=== PATIENT | female | born 1995 ===

== ENCOUNTER 2016-12-28 10:39 | Emergency (ER) | payer OTHER ==
[~2016-12-28] VITALS: Ht 167.6 cm; Wt 93.4 kg
[~2016-12-28 10:39] MED LIST: CIPR-255 PO; NORE5TAB5 PO
[2016-12-28 10:42] VITALS: TEMP 36.3; Ht 167.6 cm; Wt 93.4 kg
[2016-12-28] MEDS ORDERED: CIPROFLOXACIN HCL 0.3% OP SOLN 2.5 ML BTL OP STA (13:15)
--- NOTE | 2016-12-28 13:17 | EMERGENCY ROOM VISIT NOTE ---
History First contact with patient: 11:21 Chief Complaint: EYE PAIN Stated Complaint: CHEMICAL IN EYE - BURNING AND ITCHING History of Present Illness The patient is a 21 year old female who presents to the Emergency Room via private vehicle with complaints of "chemical in eye, burning and itching". The patient states that earlier today around 9:45 AM, she was at work at the [employer], and had a bag of high calcium, hydrated Lyme that she dropped into a barrel that caused some of the powder to come up and strike her in the eye, particularly the right eye. She notes that she rinsed with tap water however she notes that she has been unable to read well since then and has discomfort in the right eye. She immediately removed the contact from this eye. Her tetanus is up-to-date. She notes an itching sensation in the eye. Review of Systems A complete 6-point Review of Systems was discussed with the patient, with pertinent positives and negatives listed in the History of Present Illness. All remaining Review of Systems questions can be considered negative unless otherwise specified. Past Medical/Surgical History Medical Problems: (1) Uterine fibroid Family History No pertinent family history Cancer Social History Smoking Status: Never Smoker Alcohol Use: none Marital Status: single Housing Status: lives with roommate Occupation Status: [employer] Current/Historical Medications Scheduled Norethindrone (Aygestin), 5 MG PO DAILY Allergies Coded Allergies: No Known Allergies (Unverified , 12/28/16) Physical Exam Vital Signs Date Time Temp Pulse Resp B/P Pulse Ox O2 Delivery O2 Flow Rate FiO2 12/28/16 13:23 72 120/90 98 Room Air 12/28/16 10:42 36.3 94 18 146/79 98 Room Air Right Eye Acuity: 20/40 Left Eye Acuity: 20/25 Physical Exam VITAL SIGNS - Vital signs and nursing notes were reviewed. Patient is afebrile , slightly hypertensive at 146/79, non-tachycardic and is saturating well on room air 98%. GENERAL -21-year-old female appearing her stated age who is in no acute distress. Communicates well with provider and answers questions appropriately. SKIN - Without rashes. No evidence of cornell to the skin. HEAD - NC/AT. EYES - PERRL with EOMI bilaterally. Sclera anicteric. Palpebral conjunctiva pink and moist with no injection noted in the left eye, with bulbar conjunctival injection of the right. CARDIAC - RRR with S1/S2. No murmur, rubs, or gallops appreciated. Slit Lamp Examination was performed of the right eye(s). Alcaine drops were applied to the affected eye(s) for proper anesthetization. The affected eye(s) were stained with Fluorescein stain to precipitate adequate visualization of any conjunctival/scleral excoriations or ulcers. The patient's face was comfortably rested on the chin guard of the slit lamp apparatus. The lights were dimmed and the affected eye(s) were thoroughly examined under microscopy using the blue light. Inferior 4:00 corneal uptake was present with small punctate areas of evidence of chemical burn, the anterior chamber is intact with negative Abby sign. This was examined after 2 L of saline were utilized to copiously irrigate the right eye via the Miguel lens. Additionally, the eye( s) were examined under microscopy using the regular light. Close examination revealed no abnormalities. Patient tolerated the procedure well and no complications were met. Medical Decision & Procedures Medications Administered Medications (Trade) Dose Ordered Sig/Ton Route Start Time Stop Time Status Last Admin Dose Admin Ciprofloxacin HCl (Ciprofloxacin 0.3% Op Soln) 2 drops NOW STAT OP 12/28/16 13:15 12/28/16 13:16 DC 12/28/16 13:15 2 DROPS Medical Decision Patient was seen and evaluated as above. I was concerned due to the exposure that the patient may have a potential serious chemical burn of the eye because of the exposure. I did discuss the case with my attending, and the decision was made to utilize normal saline and a Miguel lens to rinse the eye after physically removing any remaining clumps of Lyme. I was unable to appreciate any remaining clumps, therefore the Miguel lens was attached to a 1000 cc bag of NSS was inserted into the eye without difficulty. The flow of the NSS was adjusted to the patient's comfort. The entire bag of NSS was allowed to flow through the patient's eye to ensure adequate dilution of any remaining chemicals. The patient tolerated the procedure well and no complications were met. 2000mL were used total. The case was discussed with the [facility] Control [facility], at 11:38 AM, who felt that the chemical could cause cornell to the eye therefore saline was recommended to irrigate the eye followed by EDTA if necessary. I was then recommended to dilute, and then stained the eye and examine the eye. They note that the EDTA can be used if there is opacity seen or indicated. The patient tolerated the 2 L well, with what I believe to be adequate dilution. The eye was stained with results as above. I did elect to discuss the case with the on-call inspector firearms and spoke with Dr. Hoang at 12:45 PM. He recommended that I have the patient call his office, and place the patient on antibiotic drops or ointment, and it was decided to use ciprofloxacin ointment. She is also to use artificial tears. He will see the patient on Saturday, but is to call his office if worse at a [phone]. I spoke with the area secretary, and the patient has an appointment at 2 PM. Patient was instructed upon things to take to the point at. Patient is to fill out a workman's comp form. She was given the Ciloxan drops to use 3-4 times daily. She is a follow-up with Dr. Hoang on Saturday, or call his office or return here sooner with any problems. She was educated upon management of today's findings, appeared to have acceptable acuity visually, does not appear to have any emergent eminence of the eye after thorough irrigation, and is to follow up as instructed. She was educated upon today's findings, and instructed upon worrisome symptoms which to return. In the evaluation and treatment of this patient, the following differential diagnoses were considered: Corneal Abrasion, Conjunctivitis, Eye Contusion, Globe Injury, Orbital Floor Injury (Blowout Fracture), Corneal Ulcer, Keratitis , Herpes Zoster Opthalmic, Blepharitis, Orbital Cellulitis, Iritis, Scleritis/ Episcleritis, Uveitis, Temporal Arteritis, Subconjunctival Hemorrhage. Impression Primary Impression: Chemical exposure of eye Departure Information Dispostion Home / Self-Care Condition GOOD Referrals No Doctor, Assigned (PCP) Alex Lucas M.D. Patient Instructions [facility] Additional Instructions You have been treated in the Emergency Department today for your chemical burn to the eye. You have been prescribed Ciloxan eye drops. This is an antibiotic which will help to prevent an infection from developing in your affected eye. You should use 2 drops in the affected eye every 6 hours for 7 days. For pain control, you can use the following [id number] medicines (if >12 yo): - Regular strength (325mg/tab) Tylenol (acetaminophen) 2 tabs every 4-6 hours as needed. Do not exceed 12 tablets in a 24 hour period. Avoid taking more than 4 grams (4000 mg) of Tylenol per day. This includes any other sources of acetaminophen you may take on a regular basis. - Regular strength (200 mg/tab) Advil (ibuprofen) 1-2 tabs every 4-6 hours as needed. Do not exceed a dose of 3200 mg per day. You should relax in a quiet, dark place for the rest of the day. You should wear sunglasses while outside for the next few days until your eyes are not as sensitive to the light. An appointment has been scheduled for you at [address] on Saturday with Dr. Hoang. The office contact information is as above. The phone number is . Please call with him any difficulties. Please discuss this with your employer to file the Workmen's Compensation forms. You need the workman's compensation employee contact number, insurance, claim number and phone number for this for your appointment on Saturday. Please call your employer to discuss this. Please call the inspector firearms office later today to verify your appointment. Return to the Emergency Department if your current symptoms worsen despite treatment course outlined above, or if you develop any of the following symptoms : intractable pain, visual disturbances, loss of vision, increased redness, swelling, drainage, or if you develop a fever. Please return to the emergency department with new/concerning symptoms.
[2016-12-28 13:23] VITALS: BP 120/90; PULSE 72; O2SAT 98
== END 2016-12-28 13:31 | disposition home or self-care (01) ==
LOC: C.EDB 10:40 → C.EDD 13:31
DX: T65.891A Toxic effect of other specified substances, accidental (unintentional), initial encounter (principal); T26.61XA Corrosion of cornea and conjunctival sac, right eye, initial encounter; Y99.0 Civilian activity done for income or pay; Y93.89 Activity, other specified; Y92.89 Other specified places as the place of occurrence of the external cause; Z79.899 Other long term (current) drug therapy

== ENCOUNTER 2017-08-10 06:05 | Emergency (ER) | payer OTHER ==
[~2017-08-10] VITALS: Ht 167.6 cm; Wt 92.9 kg
[~2017-08-10 06:05] MED LIST changes: -CIPR-255 PO
[2017-08-10 06:11] VITALS: BP 118/78; PULSE 79; TEMP 36.8; O2SAT 97; Ht 167.6 cm; Wt 92.9 kg
--- NOTE | 2017-08-10 06:20 | EMERGENCY ROOM VISIT NOTE ---
ED Visit Note First contact with patient: 06:14 CHIEF COMPLAINT: Tick bite HISTORY OF PRESENT ILLNESS: This 22 yo patient presents to the emergency department after they noticed a tick embedded this AM. The patient did try to remove it. It had been on for less than 24 hours. The patient's tetanus shot is up-to-date. The patient denies any rashes, fevers, chills, or lightheadedness. The patient denies joint tenderness. REVIEW OF SYSTEMS: A 6 system review of systems was completed with positives and pertinent negatives listed in the HPI. ALLERGIES: None MEDICATIONS: None PMH: Reviewed per chart review SOCIAL HISTORY: No drug use PHYSICAL EXAM: Vital Signs: Reviewed Nurse's notes, vital signs stable. GENERAL : Pleasant male, in no acute distress, well-developed, well-nourished. SKIN: There is a small brown tick embedded in the patient's left lower abdomen. There is a small zone of inflammation and eccymosis around the spot where the tick is. The skin is otherwise clear. NEUROLOGICAL: Alert and oriented to person place and time, cooperative. Sensory and motor functions grossly intact. ED COURSE: I examined the patient. A tick twister was used to remove the tick. The whole head was removed. There was no bleeding. The patient tolerated the procedure well. The area was dressed with bacitracin and a bandage. The patient was discharged home in good condition. DIAGNOSIS: Tick bite and removal of the abdominal wall DISCHARGE INSTRUCTIONS & TREATMENT: Watch the area for signs of infection. Keep bacitracin on it for 2 days. Follow up with family doctor if he develops symptoms of a target rash, fever, chills, lightheadedness, or joint pain. Problem List Medical Problems: (1) Uterine fibroid Status: Chronic Current/Historical Medications Scheduled Norethindrone (Aygestin), 5 MG PO DAILY Allergies Coded Allergies: No Known Allergies (Unverified , 12/28/16) Vital Signs Date Time Temp Pulse Resp B/P (MAP) Pulse Ox O2 Delivery O2 Flow Rate FiO2 08/10/17 06:11 36.8 79 20 118/78 97 Room Air Departure Information Referrals No Doctor, Assigned (PCP) [facility]
== END 2017-08-10 06:34 | disposition home or self-care (01) ==
LOC: C.EDB 06:05
DX: S30.861A Insect bite (nonvenomous) of abdominal wall, initial encounter (principal); W57.XXXA Bitten or stung by nonvenomous insect and other nonvenomous arthropods, initial encounter